=== PATIENT | female | born 1940 ===

== ENCOUNTER 2024-05-09 04:02 | Emergency (ER) | payer MEDICARE, OTHER, SELFPAY ==
[2024-05-09 04:08] VITALS: BP 137/55
[2024-05-09 04:24] LABS: % Basophils 0.4 % (0-2); % Eosinophils 2.3 % (0-6); % Lymphocytes 8.2 % (20.5-51.1); % Monocytes 5.6 % (1.7-9.3); % Neutrophils 82.5 % (42.2-75.2); Absolute Basophils 0.1 10^3/uL (0-0.2); Absolute Eosinophils 0.3 10^3/uL (0-0.7); Absolute Immature Granulocytes 0.1 10^3/uL (0-0.05); Absolute Lymphocytes 0.9 10^3/uL (1.2-3.4); Absolute Monocytes 0.7 10^3/uL (0.1-0.6); Absolute Neutrophils 9.5 10^3/uL (1.4-6.5); Hematocrit 30.8 % (37.0-47.0); Hemoglobin 9.8 g/dL (12.0-16.0); Mean Corp Hgb Conc. 31.8 g/dL (33.0-37.0); Mean Corpuscular Hgb 29.1 pg (27.0-31.0); Mean Corpuscular Volume 91.4 fL (81.0-99.0); Mean Platelet Volume 9.6 fL (7.4-10.4); Nucleated Red Blood Cells % 0 %; Platelet Count 330 10^3/uL (130-400); Red Blood Cell Count 3.37 10^6/uL (4.20-5.40); Red Cell Dist. Width 14.6 % (11.5-14.5); White Blood Cell Count 11.5 10^3/uL (4.8-10.8)
[2024-05-09 04:40] LABS: INR 2.06; PT 23.1 Sec (11.4-14.6)
[2024-05-09 04:41] LABS: APTT 37.9 Sec (23.4-35.0)
[2024-05-09 04:54] LABS: ALT (SGPT) 16 U/L (0-35); AST (SGOT) 15 U/L (14-36); Albumin 3.4 g/dl (3.5-5.0); Alkaline Phosphatase 131 U/L (38-126); Blood Urea Nitrogen 18 mg/dl (7-17); Calcium 10.7 mg/dl (8.4-10.2); Carbon Dioxide 27 mmol/L (22-30); Chloride 106 mmol/L (98-107); Glucose 135 mg/dl (70-99); Sodium 144 mmol/L (135-145); Total Bilirubin 0.9 mg/dl (0.2-1.3); eGFR 49.24
[2024-05-09 05:10] LABS: Potassium 4.2 mmol/L (3.5-5.1)
--- NOTE | 2024-05-09 05:46 | ED.MUSCINJ ---
HPI-Injury
<Yaya Lynch, DO - Last Filed: 05/11/24 00:01>
General
Chief Complaint: Fall
Source: patient and ambulance crew
Time Seen by Provider: 05/09/24 04:05
History of Present Illness-Injury
Initial Injury comments:
83-year-old [place]-speaking female presents from [facility] after she fell. Patient has a past medical history significant for congestive heart failure, and COPD. Upon arrival her oxygen saturation was diminished on room air. She
did have hip pain.
Vital signs are stable. Patient not hypoxic
Nursing note reviewed. I agree with nursing documentation up to this point in time.
Home Meds and allergies reviewed.
NUMBER AND COMPLEXITY OF PROBLEMS ADDRESSED AT THE ENCOUNTER
� Chronic conditions affecting care: CHF, COPD, A-fib, hypertension, hyperlipidemia, insulin-dependent diabetes, glaucoma, anxiety, hip replacement surgery
� Acute Exacerbation and/or Progression of Chronic Illness: CHF/COPD exacerbation
� Differential Diagnosis includes: Exacerbation of COPD/CHF,
AMOUNT AND/OR COMPLEXITY OF DATA TO BE REVIEWED AND ANALYZED
I performed an independent evaluation of the following and my interpretation is:
EKG:
Pulse Ox: Not Hypoxic
Occupational Therapy Asst: Sinus Rhythm
CT:
X-rays: Enlarged heart with pulmonary vascular congestion consistent with CHF exacerbation
Ultrasound:
Laboratory Studies: White blood cell count of 11.5
Other:
Review of other/old records:
Clinical information was obtained by an independent historian:
Prescriptions/Medications Considered but not given:
Further testing considered but not performed:
RISK OF COMPLICATIONS AND/OR MORBIDITY OR MORTALITY OF PATIENT MANAGEMENT
Social determinants of health affecting care: Good Social Support
Discussion with other providers:
Escalation of care including admission/observation vs risk of discharge considered: After being observed in the emergency department, patient is stable for discharge.
CRITICAL CARE NOTE:
Total Time (exclusive of procedures):
Update:
Phy Exam
<DO Ariel Nieto Filed: 05/11/24 00:01>
General Physical Exam
General Presentation: well appearing and mild distress
General age: appears older than age
General Skin: warm and dry
General Habitus: normal
General Mental: alert
General Hydration: appears well hydrated
ENT Exam
ENT Exam: EOMI, pharynx normal, neck supple and normocephalic
Eye Exam
Eye Exam: PERRL and EOMI
Cardiovascular Exam
Cardiovascular Exam: irregularly irregular
Pulmonary Exam
Pulmonary Exam: lungs clear, no respiratory distress, no rales, no crackles, no rhonchi, no stridor, no wheezing and no cough
Gastrointestinal Exam
Gastrointestinal Exam: normal bowel sounds, non tender, soft, no organomegaly, no pulsatile mass and non distended
Neurological Exam
Neurological Exam: alert, oriented x3, no motor deficits and speech normal
Musculoskeletal Exam
Musculoskeletal Exam: full ROM and no edema
Skin Exam
Skin Exam: normal color, warm/dry, no rash and no petechia
Psychiatric Exam
Psychiatric Exam: normal mood/affect
Injury Course
<DO Ariel Nieto Filed: 05/11/24 00:01>
Orders/Labs/Results
Orders:
Orders
05/09/24 04:04
Electrocardiogram (*1) Urgent
Reason for Study: QTc Monitoring
05/09/24 04:05
EKG- Treatment ONCE
05/09/24 04:07
CT Head W/o Iv Contrast Urgent
Comment:
Reason For Exam: fall
05/09/24 04:12
CT Pelvis W/o Iv Contrast Urgent
Comment:
Reason For Exam: fall hip pain
05/09/24 04:15
Type+Screen Urgent
Complete Blood Count/With Diff Urgent
Comprehensive Metabolic Panel Urgent
PTT Urgent
Prothrombin Time Urgent
05/09/24 06:00
Add On- LAB Urgent
Tests Added?: BNP
05/09/24 06:03
Chest [CR Chest - 2 Views ] Urgent
Comment:
Reason For Exam: Dyspnea
05/09/24 07:04
ABO2 Urgent
BBK Wristband Number:
Associate notified that ABO2 has been ordered: [id number]
Date: 05/09/24
Time: 04:27
General [employer] ID: [id number]
NT-proBNP Urgent
Comment: ADD ON
Troponin I Urgent
05/09/24 07:16
Furosemide [Lasix] 40 mg IV NOW STA
Nitroglycerin Ointment [Nitro-Bid] 1 inch TOPICAL NOW STA
Abnormal Lab Results
05/09/24
04:15
WBC 11.5 H 10^3/uL
(4.8-10.8)
RBC 3.37 L 10^6/uL
(4.20-5.40)
Hgb 9.8 L g/dL
(12.0-16.0)
Hct 30.8 L %
(37.0-47.0)
MCHC 31.8 L g/dL
(33.0-37.0)
RDW 14.6 H %
(11.5-14.5)
Abs Immat Gran (auto) 0.1 H 10^3/uL
(0-0.05)
Absolute Neuts (auto) 9.5 H 10^3/uL
(1.4-6.5)
Absolute Lymphs (auto) 0.9 L 10^3/uL
(1.2-3.4)
Absolute Monos (auto) 0.7 H 10^3/uL
(0.1-0.6)
Immature Gran % 1.0 H %
(0-0.5)
Neutrophils % 82.5 H %
(42.2-75.2)
Lymphocytes % 8.2 L %
(20.5-51.1)
PT 23.1 H Sec
(11.4-14.6)
APTT 37.9 H Sec
(23.4-35.0)
BUN 18 H mg/dl
(7-17)
Creatinine 1.1 H mg/dL
(0.6-1.0)
Glucose 135 H mg/dl
(70-99)
Calcium 10.7 H mg/dl
(8.4-10.2)
Alkaline Phosphatase 131 H U/L
(38-126)
Albumin 3.4 L g/dl
(3.5-5.0)
05/09/24 04:15
05/09/24 04:15
<Isai Mccollum, DO - Last Filed: 05/09/24 08:14>
Orders/Labs/Results
Orders:
Orders
05/09/24 04:04
Electrocardiogram (*1) Urgent
Reason for Study: QTc Monitoring
05/09/24 04:05
EKG- Treatment ONCE
05/09/24 04:07
CT Head W/o Iv Contrast Urgent
Comment:
Reason For Exam: fall
05/09/24 04:12
CT Pelvis W/o Iv Contrast Urgent
Comment:
Reason For Exam: fall hip pain
05/09/24 04:15
Type+Screen Urgent
Complete Blood Count/With Diff Urgent
Comprehensive Metabolic Panel Urgent
PTT Urgent
Prothrombin Time Urgent
05/09/24 06:00
Add On- LAB Urgent
Tests Added?: BNP
05/09/24 06:03
Chest [CR Chest - 2 Views ] Urgent
Comment:
Reason For Exam: Dyspnea
05/09/24 07:04
ABO2 Urgent
BBK Wristband Number:
Associate notified that ABO2 has been ordered: [id number]
Date: 05/09/24
Time: 04:27
General [employer] ID: [id number]
NT-proBNP Urgent
Comment: ADD ON
Troponin I Urgent
05/09/24 07:16
Furosemide [Lasix] 40 mg IV NOW STA
Nitroglycerin Ointment [Nitro-Bid] 1 inch TOPICAL NOW STA
Abnormal Lab Results
05/09/24
04:15
WBC 11.5 H 10^3/uL
(4.8-10.8)
RBC 3.37 L 10^6/uL
(4.20-5.40)
Hgb 9.8 L g/dL
(12.0-16.0)
Hct 30.8 L %
(37.0-47.0)
MCHC 31.8 L g/dL
(33.0-37.0)
RDW 14.6 H %
(11.5-14.5)
Abs Immat Gran (auto) 0.1 H 10^3/uL
(0-0.05)
Absolute Neuts (auto) 9.5 H 10^3/uL
(1.4-6.5)
Absolute Lymphs (auto) 0.9 L 10^3/uL
(1.2-3.4)
Absolute Monos (auto) 0.7 H 10^3/uL
(0.1-0.6)
Immature Gran % 1.0 H %
(0-0.5)
Neutrophils % 82.5 H %
(42.2-75.2)
Lymphocytes % 8.2 L %
(20.5-51.1)
PT 23.1 H Sec
(11.4-14.6)
APTT 37.9 H Sec
(23.4-35.0)
BUN 18 H mg/dl
(7-17)
Creatinine 1.1 H mg/dL
(0.6-1.0)
Glucose 135 H mg/dl
(70-99)
Calcium 10.7 H mg/dl
(8.4-10.2)
Alkaline Phosphatase 131 H U/L
(38-126)
Albumin 3.4 L g/dl
(3.5-5.0)
05/09/24 04:15
05/09/24 04:15
<DO Ariel Nieto Last Filed: 05/11/24 00:01>
*Radiology
Radiology exam reviewed: preliminary read by ED provider (Enlarged heart consistent with pulmonary vascular congestion) and radiology read reviewed
*Pulse Oximetry
Patient hypoxic: no
*Critical Care Note
Total Time (30-74mins, 75-104mins- exclusive of procedures): Not Applicable (Critical care statement: A total of 30 minutes of critical care time was provided for this patient. This time is separate from time utilized to perform the aforementioned
documented procedures. Aggregate critical care time includes only time during which I was engaged in work directl)
<DO Ariel Nieto Filed: 05/11/24 00:01>
Update Note
Update Note:
CT ABDOMEN/PELVIS WITH CONTRAST
IMPRESSION:
1. No acute abnormality within the abdomen or pelvis.
2. No bowel obstruction. Normal gallbladder and appendix. Diverticulosis without evidence of diverticulitis
Incidentals:
- No obstructive uropathy.
-Hepatic hypodensities, too small to characterize
- No abdominal aortic aneurysm.
- No acute osseous abnormality.
-Bibasilar atelectasis
- No acute abnormality within the visualized soft tissues.
ED Attending Note
<Yaya Lynch, DO - Last Filed: 05/11/24 00:01>
-
Portions of this chart may have been created with voice recognition software.� Occasional wrong word or��sound alike� substitutions may have occurred due to the inherent limitations of voice recognition software.
<Isai Paul Chun, DO - Last Filed: 05/09/24 08:14>
ED Attending Note
ED Attending Note:
I evaluated patient at bedside. I spoke to the son over the phone. He did not want patient to be admitted to the hospital. He was concerned about the possibly of traumatic injury but there is no clear sign of traumatic injury. I informed him of
the concern for heart failure however the son did not want patient to be admitted to the hospital. She is chronically on oxygen. The patient is no significant distress.
Discharge Plan
Departure
Patient Disposition: Home (Routine Discharge)
Date of Disposition: 05/09/24
Time of Disposition: 08:11
Patient with high blood pressure during this ER visit?: Yes
Discharge Problem:
Fall
Referrals:
Kashmir Willett MD [Family Provider] -
Activity Restrictions/Additional Instructions:
CAT scan of the brain and CAT scan of the pelvis shows no traumatic injury. X-ray and blood work does show congestive heart failure. I spoke to the son who did not want patient to be admitted to the hospital.
Interventions
Interventions:
*Risk Screen - Suicide Last Done: 05/09/24 04:08
*General Assessment Last Done: 05/09/24 04:08
*Neglect/Abuse Screening Last Done: 05/09/24 04:08
*ED COVID-19 Vaccine History Last Done: 05/09/24 07:51
*Nursing Disposition Last Done: 05/09/24 12:08
ED-Musculoskeletal Assessment Last Done: 05/09/24 04:13
ED- Neurological Assessment Last Done: 05/09/24 04:13
ED-Skin Assessment Last Done: 05/09/24 04:14
Discharge Date and Time
Discharge Date/Time: 05/09/24 12:10
Print Language: [place]
[2024-05-09 07:07] VITALS: BP 153/55
[2024-05-09] MEDS: NITRO-BID 1 INCH TOPICAL (07:27)
[2024-05-09] MEDS: LASIX 40 MG IV (07:28)
[2024-05-09 07:45] VITALS: BP 157/60
[2024-05-09 07:51] VITALS: BP 157/60
[2024-05-09 07:53] LABS: NT-proBNP 16100 pg/ml; Troponin I 0.027 ng/ml
[2024-05-09 10:27] VITALS: BP 146/75
[2024-05-09 12:08] VITALS: BP 154/57
== END 2024-05-09 12:10 | disposition home or self-care (01) ==
LOC: EMR 04:02
PROVIDERS: EMERGENCY PHYSICIAN Student in an Organized Health Care Education/Training Program; FAMILY PHYSICIAN Internal Medicine
DX: M25.552 Pain in left hip (principal); W19.XXXA Unspecified fall, initial encounter; Y92.129 Unspecified place in nursing home as the place of occurrence of the external cause; J98.11 Atelectasis; I11.0 Hypertensive heart disease with heart failure; I50.9 Heart failure, unspecified; K57.90 Diverticulosis of intestine, part unspecified, without perforation or abscess without bleeding; I51.7 Cardiomegaly; J44.9 Chronic obstructive pulmonary disease, unspecified; E78.5 Hyperlipidemia, unspecified; E11.9 Type 2 diabetes mellitus without complications; F41.9 Anxiety disorder, unspecified; I48.91 Unspecified atrial fibrillation; H40.9 Unspecified glaucoma; Z99.81 Dependence on supplemental oxygen; Z79.4 Long term (current) use of insulin
CPT/HCPCS: 99291; 96374; 70450; 71046; 72192; 80053; 83880; 84484; 85025; 85610; 85730; 86850; 86900; 86901; 93005